=== PATIENT | female | born 1940 | race Caucasian/White ===

== ENCOUNTER → 2017-08-27 | Outpatient (REF) | payer OTHER ==
[2017-08-30 00:07] LABS: Lyme Disease IgG/IgM Antibodie <0.91 ISR (0.00-0.90); Lyme Disease IgM Ab Quantitati <0.80 index (0.00-0.79)
== END ==
LOC: M LAB REF 16:34
PROVIDERS: ATTEND Nurse Practitioner Family
DX: M79.643 Pain in unspecified hand (principal)

== ENCOUNTER → 2017-11-20 | Outpatient (CLI) | payer OTHER ==
[2017-11-20 16:18] LABS: ANION GAP 8 MEQ/L (8-16); BLOOD UREA NITROGEN 17 MG/DL (7-18); CALCIUM LEVEL 9.1 MG/DL (8.8-10.2); CARBON DIOXIDE LEVEL 27 MEQ/L (21-32); CHLORIDE LEVEL 107 MEQ/L (98-107); CREATININE FOR GFR 0.66 MG/DL (0.55-1.02); GLOMERULAR FILTRATION RATE > 60.0 (>39); GLUCOSE, FASTING 106 MG/DL (83-110); POTASSIUM SERUM 4.1 MEQ/L (3.5-5.1); SODIUM LEVEL 142 MEQ/L (136-145)
== END ==
LOC: M LAB 14:48
DX: G56.03 Carpal tunnel syndrome, bilateral upper limbs (principal)
CPT/HCPCS: 80048

== ENCOUNTER → 2017-11-28 | Outpatient (REF) | payer OTHER ==
[2017-11-28 18:15] LABS: C REACTIVE PROTEIN QUANTITATIV 1.21 MG/DL (0.00-0.30)
== END ==
LOC: M LAB REF 16:09
DX: M79.1 Myalgia (principal)
CPT/HCPCS: 86140

== ENCOUNTER → 2018-09-08 | Outpatient (REF) | payer OTHER ==
[2018-09-08 13:04] LABS: C REACTIVE PROTEIN QUANTITATIV 0.45 MG/DL (0.00-0.30)
== END ==
LOC: M LAB REF 12:42
DX: M79.18 Myalgia, other site (principal)
CPT/HCPCS: 86140

== ENCOUNTER → 2019-04-29 | Outpatient (REF) | payer MEDICARE | LOC: M LAB REF 15:56 | PROVIDERS: ATTEND Surgery | DX: C44.41 Basal cell carcinoma of skin of scalp and neck (principal) ==

== ENCOUNTER → 2019-09-13 | Outpatient (REF) | payer MEDICARE | LOC: M LAB REF 17:25 | PROVIDERS: ATTEND Family Medicine | DX: E07.9 Disorder of thyroid, unspecified (principal) ==

== ENCOUNTER → 2020-09-05 | Outpatient (CLI) | payer SELFPAY | LOC: M LABSMTC 09:39 | PROVIDERS: ATTEND Pediatrics | DX: Z20.828 Contact with and (suspected) exposure to other viral communicable diseases (principal) ==

== ENCOUNTER → 2021-12-21 | Outpatient (CLI) | payer MEDICARE | LOC: M RAD 11:16 | PROVIDERS: ATTEND Physician Assistant Medical | DX: M79.661 Pain in right lower leg (principal); I83.811 Varicose veins of right lower extremity with pain ==